=== PATIENT | male | born 1985 | race Caucasian/White ===

== ENCOUNTER 2018-10-04 20:07 | Emergency (ER) | payer SELFPAY ==
[~2018-10-04] VITALS: Ht 182.9 cm; Wt 63.5 kg
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
--- OUTSIDE RECORDS SUMMARY | 2018-10-04 20:12 | XMS REPORT | Continuity of Care Document ---
Author Organization Unknown Address Unknown Phone Unavailable Allergies There is no data. Medications There is no data. 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 Encounters ACCT No. Visit Date/Time Discharge Status Pt. Type Provider Facility Loc./Unit Complaint [id number] 01/04/2014 16:15:00 01/04/2014 23:59:59 CLS Outpatient JANET LINARES MD [id number] 03/03/2012 13:53:00 03/03/2012 23:59:59 CLS Outpatient
--- OUTSIDE RECORDS SUMMARY | 2018-10-04 20:12 | XMS REPORT ---
Author Author JAQUELINE CABEZAS [facility] Address Unknown Phone Unavailable Care Team Providers Care Regional Sales Engineer Name Role Phone JAQUELINE CABEZAS CP Unavailable Allergies, Adverse Reactions, Alerts Substance Reaction Event Type N.K.D.A. Info Not Available Non Drug Allergy Problems Problem Type Condition Code Onset Dates Condition Status Assessment Acute mucoid otitis media of right ear H65.111 Active Medications Medication Code System Code Instructions Start Date End Date Status Dosage Sudafed [facility] [place] [address]-17 10mg Orally every 6 hrs Dec 11, 2015 1 tablet as needed Amoxicillin [facility] [place] [address]-26 500 MG Orally three times a day Dec 11, 2015 Dec 21, 2015 1 capsule Procedures Procedure Coding System Code Date Office Visit, Est Pt., Level 3 CPT-4 30887 Dec 11, 2015 Vital Signs Date/Time: Dec 11, 2015 Cardiac Monitoring Heart Rate 76 bpm Weight 140.3 lbs Height 72 in BMI 19.03 Index Blood Pressure Diastolic 82 mmHg Blood Pressure Systolic 128 mmHg Results No Known Results Summary Purpose eClinicalWorks Submission
--- OUTSIDE RECORDS SUMMARY | 2018-10-04 20:12 | XMS REPORT ---
Author BELIA Del Valle Organization [employer] Address Unknown Phone Unavailable Care Team Providers Care Certifier Name Role Phone BELIA GONSALVES CP Unavailable Allergies, Adverse Reactions, Alerts Substance Reaction Event Type N.K.D.A. Info Not Available Non Drug Allergy Problems Problem Type Condition Code Onset Dates Condition Status Assessment Internal hemorrhoid, bleeding K64.8 Active Medications No Known Medications Procedures Procedure Coding System Code Date Office Visit, Est Pt., Level 3 CPT-4 41372 Oct 07, 2015 Vital Signs Date/Time: Oct 07, 2015 Cardiac Monitoring Heart Rate 60 bpm Weight 133.7 lbs Height 72 in BMI 18.13 Index Blood Pressure Diastolic 83 mmHg Blood Pressure Systolic 120 mmHg Results No Known Results Summary Purpose eClinicalWorks Submission
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
[2018-10-04] MEDS ORDERED: LIDOCAINE 2% VISCOUS 15 ML UDC PO ONE (20:30)
[2018-10-04] MEDS ORDERED: ANTACID SUSP 30 ML UDC (MYLANTA) PO ONE (20:30)
[2018-10-04] MEDS ORDERED: fentaNYL INJECTION 100 MCG/2 ML AMP IVP ONE ×2 (20:30→21:15)
[2018-10-04] MEDS ORDERED: ONDANSETRON 4 MG/2 ML (SDV) Z0FRAN IVP ONE (20:30)
[2018-10-04] MEDS ORDERED: NS IV 1000 ML 1,000 ML IV SCH (20:30)
[2018-10-04 20:31] LABS: BASOPHILS % (AUTO) 0 % (0-10); EOSINOPHILS # (AUTO) 0.1 10^3/uL (0.0-0.3); EOSINOPHILS % (AUTO) 0 % (0-10); HEMATOCRIT 43 % (40-54); HEMOGLOBIN 14.4 G/DL (13.3-17.7); LYMPHOCYTES # (AUTO) 2.3 X 10^3 (1.0-4.0); LYMPHOCYTES % (AUTO) 14 % (12-44); MEAN CORPUSCULAR HEMOGLOBIN 30 PG (25-34); MEAN CORPUSCULAR HGB CONC 34 G/DL (32-36); MEAN CORPUSCULAR VOLUME 89 FL (80-99); MEAN PLATELET VOLUME 10.9 FL (7.4-10.4); MONOCYTES # (AUTO) 1.2 X 10^3 (0.0-1.0); MONOCYTES % (AUTO) 7 % (0-12); NEUTROPHILS # (AUTO) 13.1 X 10^3 (1.8-7.8); NEUTROPHILS % (AUTO) 79 % (42-75); PLATELET COUNT 230 10^3/uL (130-400); RED CELL DISTRIBUTION WIDTH 12.7 % (10.0-14.5); WHITE BLOOD COUNT 16.7 10^3/uL (4.3-11.0)
[2018-10-04 20:43] LABS: ALANINE AMINOTRANSFERASE 12 U/L (0-55); ALBUMIN 4.6 GM/DL (3.2-4.5); ALKALINE PHOSPHATASE 44 U/L (40-136); AMYLASE 56 U/L (25-125); BILIRUBIN,TOTAL 0.8 MG/DL (0.1-1.0); BUN/CREATININE RATIO 9; CALCIUM 9.5 MG/DL (8.5-10.1); CARBON DIOXIDE 26 MMOL/L (21-32); CHLORIDE 103 MMOL/L (98-107); CREATININE SERUM 1.24 MG/DL (0.60-1.30); GFR ESTIMATED > 60; GLUCOSE 103 MG/DL (70-105); LIPASE 24 U/L (8-78); POTASSIUM 3.7 MMOL/L (3.6-5.0); SODIUM 141 MMOL/L (135-145); TOTAL PROTEIN 7.1 GM/DL (6.4-8.2)
--- NOTE | 2018-10-04 21:08 | ED Abdominal Pain ---
General Chief Complaint: Abdominal/GI Problems Stated Complaint: ABD PAIN Nursing Triage Note: Patient ambulatory to ER room 6 with spouse. Patient is holding his left lower quadrant and states he began having abdominal pain this AM. He has had vomiting today and diarrhea earlier today. Patient states the pain is stabbing to the left lower quadrant. Sepsis Screen: No Definite Risk Source of Information: Patient Exam Limitations: No Limitations History of Present Illness Date Seen by Provider: Oct 04, 2018 Time Seen by Provider: 20:25 Initial Comments 33-year-old female who presents to the emergency room accompanied by his complaints of left upper quadrant abdominal pain that started this morning after eating spicy [place] sauce from [employer]. He also reports he had a few episodes of vomiting and diarrhea earlier in the morning. He describes the pain is stabbing/burning. Timing/Duration: 12 Hours Location: [facility] Radiation: No Radiation Associated Symptoms: Nausea/Vomiting Allergies and Home Medications Allergies Coded Allergies: No Known Drug Allergies (Unverified , 10/04/18) Home Medications Ciprofloxacin HCl 500 Mg Tablet, 500 MG PO BID Prescribed by: SHU TRUJILLO on 10/04/182244 Hydrocodone Bit/Acetaminophen 1 Tab Tab, 1-2 EACH PO Q6H PRN for PAIN-MODERATE Prescribed by: SHU TRUJILLO on 10/04/182244 Metronidazole 500 Mg Tablet, 500 MG PO BID Prescribed by: SHU TRUJILLO on 10/04/182244 Patient Home Medication List Home Medication List Reviewed: Yes Review of Systems Review of Systems Constitutional: see HPI; No chills, No fever Gastrointestinal: See HPI, Abdominal Pain, Diarrhea, Nausea, Vomiting All Other Systems Reviewed Negative Unless Noted: Yes Past Ulsmuao-Hcwkxu-Qxvylg Hx Past Med/Social Hx: Reviewed Nursing Past Med/Soc Hx Patient Social History Alcohol Use: Denies Use Recreational Drug Use: No Smoking Status: Current Someday Smoker Type Used: Cigarettes 2nd Hand Smoke Exposure: Yes Recent Foreign Travel: No Contact w/Someone Who Travel: No Recent Infectious Disease Expo: No Recent Hopitalizations: No Physical Abuse: No Sexual Abuse: No Mistreated: No Fear: No Seasonal Allergies Seasonal Allergies: No Past Medical History Surgeries: No Respiratory: No Cardiac: No Neurological: No Genitourinary: No Gastrointestinal: No Musculoskeletal: No Endocrine: No HEENT: No Cancer: No Psychosocial: No Integumentary: No Blood Disorders: No Family Medical History Reviewed Nursing Family Hx Physical Exam Vital Signs Vital Signs - First Documented 10/04/18 20:11 Temp 97.7 Pulse 47 Resp 18 B/P (MAP) 134/86 (102) Pulse Ox 99 O2 Delivery Room Air Capillary Refill : Less Than 3 Seconds Height/Weight/BMI Height: 6'0" Weight: 140lbs. oz. 63.237409lw; BMI Method:Stated General Appearance: WD/WN, no apparent distress Respiratory: chest non-tender, lungs clear, normal breath sounds, no respiratory distress, no accessory muscle use Cardiovascular: normal peripheral pulses, regular rate, rhythm, no edema, no gallop, no JVD, no murmur Gastrointestinal: normal bowel sounds, non tender, soft, no organomegaly, no pulsatile mass Extremities: normal capillary refill Neurologic/Psychiatric: alert, normal mood/affect, oriented x 3 Skin: normal color, warm/dry Progress/Results/Core Measures Results/Orders Lab Results Laboratory Tests Test 10/04/18 20:15 Range/Units White Blood Count 16.7 H 4.3-11.0 10^3/uL Red Blood Count 4.77 4.35-5.85 10^6/uL Hemoglobin 14.4 13.3-17.7 G/DL Hematocrit 43 40-54 % Mean Corpuscular Volume 89 80-99 FL Mean Corpuscular Hemoglobin 30 25-34 PG Mean Corpuscular Hemoglobin Concent 34 32-36 G/DL Red Cell Distribution Width 12.7 10.0-14.5 % Platelet Count 230 130-400 10^3/uL Mean Platelet Volume 10.9 H 7.4-10.4 FL Neutrophils (%) (Auto) 79 H 42-75 % Lymphocytes (%) (Auto) 14 12-44 % Monocytes (%) (Auto) 7 0-12 % Eosinophils (%) (Auto) 0 0-10 % Basophils (%) (Auto) 0 0-10 % Neutrophils # (Auto) 13.1 H 1.8-7.8 X 10^3 Lymphocytes # (Auto) 2.3 1.0-4.0 X 10^3 Monocytes # (Auto) 1.2 H 0.0-1.0 X 10^3 Eosinophils # (Auto) 0.1 0.0-0.3 10^3/uL Basophils # (Auto) 0.0 0.0-0.1 10^3/uL Neutrophils % (Manual) 81 % Lymphocytes % (Manual) 12 % Monocytes % (Manual) 3 % Eosinophils % (Manual) 1 % Basophils % (Manual) 0 % Band Neutrophils 1 % Reactive Lymphocytes 2 % Poikilocytosis SLIGHT Sodium Level 141 135-145 MMOL/L Potassium Level 3.7 3.6-5.0 MMOL/L Chloride Level 103 98-107 MMOL/L Carbon Dioxide Level 26 21-32 MMOL/L Anion Gap 12 5-14 MMOL/L Blood Urea Nitrogen 11 7-18 MG/DL Creatinine 1.24 0.60-1.30 MG/DL Estimat Glomerular Filtration Rate > 60 BUN/Creatinine Ratio 9 Glucose Level 103 70-105 MG/DL Calcium Level 9.5 8.5-10.1 MG/DL Corrected Calcium 8.5-10.1 MG/DL Total Bilirubin 0.8 0.1-1.0 MG/DL Aspartate Amino Transf (AST/SGOT) 20 5-34 U/L Alanine Aminotransferase (ALT/SGPT) 12 0-55 U/L Alkaline Phosphatase 44 40-136 U/L Total Protein 7.1 6.4-8.2 GM/DL Albumin 4.6 H 3.2-4.5 GM/DL Amylase Level 56 25-125 U/L Lipase 24 8-78 U/L My Orders Nat - SHU TRUJILLO Comprehensive Metabolic Panel (10/04/18 20:25) Lipase (10/04/18 20:25) Amylase (10/04/18 20:25) Ed Iv/Invasive Line Start (10/04/18 20:25) Cbc With Automated Diff (10/04/18 20:25) Fentanyl Injection (Sublimaze Injection (10/04/18 20:30) Antacid Suspension (Mylanta Suspension (10/04/18 20:30) Lidocaine 2% Viscous 15 Ml (Xylocaine Vi (10/04/18 20:30) Ondansetron Injection (Zofran Injectio (10/04/18 20:30) Ns Iv 1000 Ml (Sodium Chloride 0.9%) (10/04/18 20:30) Manual Differential (10/04/18 20:15) Fentanyl Injection (Sublimaze Injection (10/04/18 21:15) Ct Abdomen/Pelvis W (10/04/18 21:14) Iohexol Injection (Omnipaque 350 Mg/Ml 1 (10/04/18 21:30) Received Contrast (Hold Metformin- Contr (10/04/18 21:30) Ns (Ivpb) (Sodium Chloride 0.9% Ivpb Bag (10/04/18 21:30) Hydrocodone/Apap 7.5/325 Tab (Lortab 7. (10/04/18 22:30) Ciprofloxacin Tablet (Cipro Tablet) (10/04/18 22:30) Metronidazole Tablet (Flagyl Tablet) (10/04/18 22:30) Rx-Hydrocodone/Apap 5-325 Mg (Rx-Vicodin (10/04/18 23:00) Medications Given in ED Vital Signs/I&O 10/04/18 10/04/18 20:11 22:58 Temp 97.7 97.7 Pulse 47 60 Resp 18 18 B/P (MAP) 134/86 (102) 128/88 (101) Pulse Ox 99 99 O2 Delivery Room Air 10/05/18 00:00 Intake Total 1000 ml Balance 1000 ml Blood Pressure Mean: 102 Progress Progress Note : Time: 22:30 Progress Note I have discussed the case with Dr. Royal and Dr. VILLALOBOS. Dr. Royal recommended admitting the patient for IV pain control and antibiotics. Dr. Mckoy agreed for admission. I discussed this with the patient and he wishes to try outpatient treatment at home. I discussed this with the physician's and they recommend placing him on pain control, nothing by mouth status for a few days, and Cipro and Flagyl for antibiotic coverage. The patient agrees with this plan and will follow up with his PCP and Dr. Royal. Strict return precautions were given. Diagnostic Imaging Diagonstic Imaging: CT Plain Films/CT/US/NM/MRI: abdomen, pelvis Comments NAME: LANCE OROURKE REC#: [id number] PT STATUS: REG ER : 1985 PHYSICIAN: SHU TRUJILLO ADMIT DATE: 10/04/18/ER Draft Date of Exam:10/04/18 CT ABDOMEN/PELVIS W PROCEDURE: CT abdomen and pelvis with contrast. TECHNIQUE: Multiple contiguous axial images were obtained through the abdomen and pelvis after administration of intravenous contrast. Auto Exposure Controls were utilized during the CT exam to meet ALARA standards for radiation dose reduction. DATE: October 04, 2018. COMPARISON: CT abdomen and pelvis September 03, 2007. INDICATION: 33-year-old male, left lower quadrant abdominal pain. Nausea, vomiting, diarrhea. FINDINGS: The visualized portions of the lung bases are clear. The heart is not enlarged. There is no identified pericardial effusion. The liver is normal in size and contour. There is no identified liver lesion. The main, right, and left portal veins are grossly patent. There is no identified gallstone. There is no biliary ductal dilation. There is a small amount of pericholecystic fluid. The gallbladder is not distended. There is no adjacent inflammatory stranding. The main pancreatic duct is not abnormally dilated. Unremarkable appearance of the pancreatic parenchyma. The spleen is normal in size. The adrenal glands are unremarkable. Unremarkable appearance of the renal parenchyma. Urinary collecting systems are not distended. There is no identified renal or ureteral stone. The urinary bladder is underdistended and not well evaluated. There is abnormal wall thickening and mucosal enhancement of the right colon. The appendix is not well seen. There are no convincing secondary findings to specifically suggest acute appendicitis. There is no identified free intraperitoneal air. There is no well-demarcated drainable fluid collection. There is no sizable volume free pelvic fluid. There is no identified abnormally enlarged lymph node in the abdomen or pelvis which meets CT size criteria for adenopathy. There is no identified acute bony abnormality. IMPRESSION: CT ABDOMEN AND PELVIS. 1. Abnormal wall thickening and mucosal enhancement of the right colon most likely relating to an infectious or inflammatory colitis. Dictated on workstation # [id number] Dict: 10/04/18 2144 Trans: 10/04/18 2156 [facility] [id number] Interpreted by: TOR JIMENEZ MD Electronically signed by: Reviewed: Reviewed by Me Departure Impression Primary Impression: Colitis Disposition: 01 HOME, SELF-CARE Condition: Stable/Unchanged Departure-Patient Inst. Decision time for Depature: 22:39 Referrals: PK ROYAL,LOCAL PHYSICIAN (PCP) Primary Care Physician Patient Instructions: Colitis Add. Discharge Instructions: Take medications as directed. Follow-up with primary care within 1 week for recheck. Call tomorrow morning to schedule an appointment time. Call Dr. Royal's office to schedule an appointment for 2-3 week follow-up. Return back to the emergency room for worsening symptoms or concerns as needed. All discharge instructions reviewed with patient and/or family. Voiced understanding. Scripts Hydrocodone Bit/Acetaminophen (Hydrocodone/Acetaminophen 5/325mg Tablet) 1 Tab Tab 1-2 EACH PO Q6H PRN for PAIN-MODERATE MDD 10 for 3 Days, #20 TAB 0 Refills Prov: SHU TRUJILLO 10/04/18 Metronidazole (Metronidazole) 500 Mg Tablet 500 MG PO BID for 7 Days, #14 TAB 0 Refills Prov: SHU TRUJILLO 10/04/18 Ciprofloxacin HCl (Cipro) 500 Mg Tablet 500 MG PO BID for 7 Days, #14 TAB Prov: SHU TRUJILLO 10/04/18 SHU TRUJILLO Oct 04, 2018 21:08
[2018-10-04] MEDS ORDERED: IOHEXOL 350 MG/ML 100 ML (OMNIPAQUE 350) VIAL IV ONE (21:30)
[2018-10-04] MEDS ORDERED: NS 100 ML (IVPB) BAG IV ONE (21:30)
[2018-10-04] MEDS ORDERED: HOLD METFORMIN - RECEIVED CONTRAST 20 ML VIAL IV SCH (21:30)
[2018-10-04 21:43] LABS: BAND NEUTROPHILS 1 %; BASOPHILS % (MANUAL) 0 %; EOSINOPHILS % (MANUAL) 1 %; LYMPHOCYTES % (MANUAL) 12 %; MONOCYTES % (MANUAL) 3 %; NEUTROPHILS % (MANUAL) 81 %; POIKILOCYTOSIS SLIGHT; REACTIVE LYMPHOCYTES 2 %
--- NOTE | 2018-10-04 21:57 | Diagnostic Imaging Report ---
PROCEDURE: CT abdomen and pelvis with contrast. TECHNIQUE: Multiple contiguous axial images were obtained through the abdomen and pelvis after administration of intravenous contrast. Auto Exposure Controls were utilized during the CT exam to meet ALARA standards for radiation dose reduction. DATE: October 04, 2018. COMPARISON: CT abdomen and pelvis September 03, 2007. INDICATION: 33-year-old male, left lower quadrant abdominal pain. Nausea, vomiting, diarrhea. FINDINGS: The visualized portions of the lung bases are clear. The heart is not enlarged. There is no identified pericardial effusion. The liver is normal in size and contour. There is no identified liver lesion. The main, right, and left portal veins are grossly patent. There is no identified gallstone. There is no biliary ductal dilation. There is a small amount of pericholecystic fluid. The gallbladder is not distended. There is no adjacent inflammatory stranding. The main pancreatic duct is not abnormally dilated. Unremarkable appearance of the pancreatic parenchyma. The spleen is normal in size. The adrenal glands are unremarkable. Unremarkable appearance of the renal parenchyma. Urinary collecting systems are not distended. There is no identified renal or ureteral stone. The urinary bladder is underdistended and not well evaluated. There is abnormal wall thickening and mucosal enhancement of the right colon. The appendix is not well seen. There are no convincing secondary findings to specifically suggest acute appendicitis. There is no identified free intraperitoneal air. There is no well-demarcated drainable fluid collection. There is no sizable volume free pelvic fluid. There is no identified abnormally enlarged lymph node in the abdomen or pelvis which meets CT size criteria for adenopathy. There is no identified acute bony abnormality. IMPRESSION: CT ABDOMEN AND PELVIS. 1. Abnormal wall thickening and mucosal enhancement of the right colon most likely relating to an infectious or inflammatory colitis. Dictated by: Dictated on workstation # [id number]
[2018-10-04] MEDS ORDERED: metroNIDAZOLE 500 MG (FLAGYL) TAB PO ONE (22:30)
[2018-10-04] MEDS ORDERED: HYDROcodone/APAP 7.5 MG/325 MG (LORTAB, LORCET PLUS) TABLET PO ONE (22:30)
[2018-10-04] MEDS ORDERED: CIPROFLOXACIN 500 MG (CIPRO) TABLET PO SCH (22:30)
[2018-10-04] MEDS ORDERED: ACHD5005 PO (22:45)
[2018-10-04] MEDS ORDERED: METR-145 PO (22:45)
[2018-10-04] MEDS ORDERED: CIPR-225 PO (22:45)
[2018-10-04 22:58] VITALS: BP 128/88
[2018-10-04] MEDS ORDERED: RX-HYDROCODONE/APAP 5/325 MG #4 TAB PK PO PRN (23:00)
== END 2018-10-04 22:58 | disposition home or self-care (01) ==
LOC: EDUNIT# 20:07 → ER 20:08
DX: K52.9 Noninfective gastroenteritis and colitis, unspecified (principal); F17.210 Nicotine dependence, cigarettes, uncomplicated
CPT/HCPCS: 36415; 74177; 80053; 82150; 83690; 85007; 85027; 96361; 96374; 96375; 96376